=== PATIENT | female | born 1965 | race Caucasian/White ===

== ENCOUNTER 2017-04-09 23:32 | Emergency (ER) | payer BC ==
[~2017-04-09] VITALS: Ht 160 cm; Wt 102.1 kg
[~2017-04-09 23:32] MED LIST: FLUC200T45 PO; IRBE75TA31 PO; MUPI22OI TP; NAPR-243 PO; OMEP20CA12 PO; SULF1TAB35 PO; TRIA1TAB3 PO
[2017-04-10] MEDS ORDERED: HYDROcodone/APAP 5 MG/325 MG (LORTAB) TAB PO ONE (01:15)
[2017-04-10] MEDS ORDERED: CYCLOBENZAPRINE 10 MG (FLEXERIL) TAB PO ONE (01:15)
[2017-04-10] MEDS ORDERED: PRD20T PO (01:20)
[2017-04-10] MEDS ORDERED: CYCL10TA9 PO (01:20)
--- NOTE | 2017-04-10 01:20 | ED Back Pain ---
General Chief Complaint: Back Problems Stated Complaint: RT SHOULDER & MIDDLE BACK PAIN Nursing Triage Note: Pt amb to ED reporting an upper right back pain with deep breathe that radiates into R shoulder. Initially noted as "a catch in R shoulder Sunday a.m. when I awoke." Pain is "5-6" with regular breathe and "9-10" with deep breathe. 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 Pt could not reach Dr Aldana today. Nursing Sepsis Screen: No Definite Risk Source of Information: Patient Exam Limitations: No Limitations History of Present Illness Time Seen by Provider: 00:55 Initial Comments This 51-year-old woman presents to the emergency room with pain in the right posterior chest and right shoulder that is worse with certain positions and especially with deep breathing. She can identify no injury. Affected areas are tender to palpation. She denies any cough or fever. She has no lower extremity symptoms. She has been using Aleve, Tylenol, and tramadol without significant relief. 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 She has occasional shortness of breath. She denies any tobacco use. She does note a recent pinching sensation in the right neck as well. There was no tachycardia or hypoxia on assessment. Allergies and Home Medications Allergies Coded Allergies: prochlorperazine (Verified Allergy, Unknown, 02/15/15) Home Medications Cyclobenzaprine HCl 10 Mg Tablet, 10 MG PO TID PRN for SPASMS, #20 Prescribed by: MAXIMINO HELLER on 04/10/17 0120 Fluconazole 200 Mg Tablet, 1 EACH PO DAILY, #5 Prescribed by: KANIKA ALFRED on 02/15/15 0658 Irbesartan 75 Mg Tablet, Unknown Dose PO, (Reported) Mupirocin 22 Gm Oint..gm., 22 GM TP BID, #1 Prescribed by: KANIKA ALFRED on 02/15/15 0658 Naproxen 500 Mg Tablet, 1 EACH PO TID PRN for PAIN, #20 FOR PAIN Prescribed by: KANIKA ALFRED on 02/15/15 0658 Omeprazole 20 Mg Capsule.dr, 1 CAP PO DAILY, #30 (Reported) Prednisone 20 Mg Tab, 20 MG PO DAILY, #4 Prescribed by: MAXMIINO HELLER on 04/10/17 0120 Sulfamethoxazole/Trimethoprim 1 Each Tablet, 1 TAB PO BID, #20 FOR INFECTION Prescribed by: KANIKA ALFRED on 02/15/15 0658 Triamterene/Hydrochlorothiazid 1 Udtab Tablet, Unknown Dose PO, #30 (Reported) Constitutional: no symptoms reported EENTM: no symptoms reported Respiratory: see HPI Cardiovascular: no symptoms reported Gastrointestinal: no symptoms reported Genitourinary: no symptoms reported Musculoskeletal: see HPI Skin: no symptoms reported Psychiatric/Neurological: No Symptoms Reported Past Qumlcez-Atamix-Llltgo Hx Patient Social History Alcohol Use: Denies Use Recreational Drug Use: No Smoking Status: Never a Smoker 2nd Hand Smoke Exposure: No Recent Foreign Travel: No Contact w/Someone Who Travel: No Recent Infectious Disease Expo: No Recent Hopitalizations: No Immunizations Up To Date Tetanus Booster (TDap): Unknown Seasonal Allergies Seasonal Allergies: Yes Surgeries HX Surgeries: Yes (BUNIONECTOMY, NEUROMA REMOVAL, TOENAILS REMOVED) Surgeries: Adenoidectomy, Section, Gallbladder, Hysterectomy, Orthopedic, Tonsillectomy Respiratory Hx Respiratory Disorders: Yes (history of pleurisy) Respiratory Disorders: Pneumonia Cardiovascular Hx Cardiac Disorders: Yes Cardiac Disorders: Hypertension Neurological Hx Neurological Disorders: No Reproductive System Hx Reproductive Disorders: Yes Sexually Transmitted Disease: No Female Reproductive Disorders: Endometriosis 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 Genitourinary Hx Genitourinary Disorders: No Gastrointestinal Hx Gastrointestinal Disorders: Yes Gastrointestinal Disorders: Gastroesophageal Reflux Musculoskeletal Hx Musculoskeletal Disorders: No Endocrine Hx Endocrine Disorders: No HEENT HX ENT Disorders: No Cancer Hx Cancer: No Psychosocial Hx Psychiatric Problems: No Integumentary HX Skin/Integumentary Disorder: No Blood Transfusions Hx Blood Disorders: No Family Medical History Significant Family History: Heart Disease, Cancer (oral squamous cell carcinoma , melanoma), Diabetes, Hypertension Physical Exam Vital Signs Vital Sign - Last 12Hours 04/09/17 23:35 Temp 98.3 Pulse 79 Resp 20 B/P (MAP) 155/85 Pulse Ox 99 O2 Delivery Room Air Capillary Refill : Less Than 3 Seconds General Appearance: No Apparent Distress, WD/WN, Obese HEENT: PERRL/EOMI, Normal ENT Inspection Neck: Normal Inspection Cardiovascular: Regular Rate, Rhythm, No Edema, No Murmur Respiratory: Lungs Clear, Normal Breath Sounds, No Accessory Muscle Use, No Respiratory Distress Back: Other (tenderness to palpation in the right posterior chest wall/ paraspinous muscles) Extremity: Normal Inspection, Non Tender (lower extremities), No Calf Tenderness, No Pedal Edema, Other (negative Mili. Right shoulder tender to palpation and pain induced with range of motion. Range of motion intact.) Neurologic/Psychiatric: Alert, Oriented x3, No Motor/Sensory Deficits, Normal Mood/Affect, investigation lieutenant II-XII Norm as Tested Skin: Normal Color, Warm/Dry, No Rash Progress/Results/Core Measures Results/Orders My Orders Orders - MAXIMINO VALLE MD Hydrocodone/Apap 5/325 Tablet (Lortab 5 (04/10/17 01:15) Cyclobenzaprine Tablet (Flexeril Tablet) (04/10/17 01:15) Vital Signs/I&O Vital Sign - Last 12Hours 04/09/17 04/10/17 23:35 01:27 Temp 98.3 98.3 Pulse 79 81 Resp 20 18 B/P (MAP) 155/85 Pulse Ox 99 100 O2 Delivery Room Air Room Air Blood Pressure Mean: 108 Progress Note : Progress Note Patient declined Toradol injection. She was alternatively given Flexeril and hydrocodone in the ER. Departure Impression Impression: Primary Impression: Upper back pain Additional Impression: Right shoulder pain Qualified Codes: M25.511 - Pain in right shoulder Disposition: 01 HOME, SELF-CARE Condition: Improved Departure-Patient Inst. Decision time for Depature: 01:15 Referrals: MILLICENT ALDANA DO (PCP/Family) Primary Care Physician Patient Instructions: Upper Back Pain (DC) Add. Discharge Instructions: You may continue using Aleve (naproxen) up to 500 mg every 12 hours. You may add Tylenol and tramadol as necessary for additional pain relief. Gentle heat such as a heating pad on low may also be helpful. Avoid activities or postures that exacerbate your pain. Start your prednisone prescription tomorrow. If not improving over the next day or two, seek further evaluation with your primary care provider. Consider other modalities of pain management including adult care provider. Return to the ER if symptoms worsen. All discharge instructions reviewed with patient and/or family. Voiced understanding. Scripts Prednisone (Prednisone) 20 Mg Tab 20 MG PO DAILY, #4 TAB Prov: MAXIMINO VALLE MD 04/10/17 Cyclobenzaprine HCl (Cyclobenzaprine HCl) 10 Mg Tablet 10 MG PO TID Y for SPASMS, #20 TAB Prov: MAXIMINO VALLE MD 04/10/17 MAXIMINO VALLE MD Apr 10, 2017 01:20
[2017-04-10 01:27] VITALS: BP 157/77
== END 2017-04-10 01:25 | disposition home or self-care (01) ==
LOC: EDUNIT# 23:32 → ER 23:34
DX: M25.511 Pain in right shoulder (principal); M54.6 Pain in thoracic spine; I10 Essential (primary) hypertension; K21.9 Gastro-esophageal reflux disease without esophagitis; Z82.49 Family history of ischemic heart disease and other diseases of the circulatory system; Z80.8 Family history of malignant neoplasm of other organs or systems; Z90.710 Acquired absence of both cervix and uterus; Z90.89 Acquired absence of other organs
CPT/HCPCS: 99283

== ENCOUNTER 2017-12-27 05:32 | Outpatient (CLI) | payer BC ==
[~2017-12-27] VITALS: Ht 160 cm; Wt 102.1 kg
[~2017-12-27 05:32] MED LIST changes: +CYCL10TA9 PO; +PRD20T PO
[2017-12-27] MEDS ORDERED: OMEP20TA7 PO (15:52)
[2017-12-27] MEDS ORDERED: ASPI-586 PO (15:52)
[2017-12-27] MEDS ORDERED: TRIA1TAB2 PO (15:52)
[2017-12-27] MEDS ORDERED: IRBE150T50 PO (15:52)
[2018-03-28] MEDS ORDERED: HYDR-34 PO (14:56)
== END 2017-12-27 15:56 ==
LOC: PREOP 05:32
PROVIDERS: ATTEND Specialist
DX: Z01.818 Encounter for other preprocedural examination (principal); H25.12 Age-related nuclear cataract, left eye

== ENCOUNTER 2018-01-04 06:23 | Day surgery (SDC) | payer BC ==
[~2018-01-04] VITALS: Ht 160 cm; Wt 102.1 kg
[~2018-01-04 06:23] MED LIST changes: +ASPI-586 PO; +IRBE150T50 PO; +OMEP20TA7 PO; +TRIA1TAB2 PO
--- OUTSIDE RECORDS SUMMARY | 2018-01-04 06:27 | XMS REPORT | Continuity of Care Document ---
Author Author [facility] Organization [facility] Address Unknown Phone Unavailable Allergies Active Description Code Type Severity Reaction Onset Reported/Identified Relationship to Patient Clinical Status Yes prochlorperazine [id number] Drug Allergy Unknown N/A 02/15/2015 Medications There is no data. Problems Date Dx Coded Attending Type Code Diagnosis Diagnosed By 02/15/2015 KANIKA ALFRED DO Ot 845.00 SPRAIN OF ANKLE NOS 02/15/2015 KANIKA ALFRED DO Ot 882.0 OPEN WOUND OF HAND 02/15/2015 KANIKA ALFRED DO Ot 917.0 ABRASION FOOT TOE 02/15/2015 KANIKA ALFRED DO Ot 959.7 LOWER LEG INJURY NOS 02/15/2015 KANIKA ALFRED DO Ot E000.8 OTHER EXTERNAL CAUSE STATUS 02/15/2015 KANIKA ALFRED DO Ot E888.8 FALL NEC 04/10/2017 MAXIMINO VALLE MD Ot I10 ESSENTIAL (PRIMARY) HYPERTENSION 04/10/2017 MAXIMINO VALLE MD, Ot K21.9 GASTRO-ESOPHAGEAL REFLUX DISEASE WITHOUT 04/10/2017 MAXIMINO VALLE MD Ot M25.511 PAIN IN RIGHT SHOULDER 04/10/2017 MAXIMINO VALLE MD Ot M54.6 PAIN IN THORACIC SPINE 04/10/2017 MAXIMINO VALLE MD Ot Z80.8 FAMILY HISTORY OF MALIGNANT NEOPLASM OF 04/10/2017 MAXIMINO VALLE MD, Ot Z82.49 FAMILY HX OF ISCHEM HEART DIS AND OTH DI 04/10/2017 MAXIMINO VALLE MD, Ot Z90.710 ACQUIRED ABSENCE OF BOTH CERVIX AND UTER 04/10/2017 MAXIMINO VALLE MD, Ot Z90.89 ACQUIRED ABSENCE OF OTHER ORGANS 12/27/2017 JENI SANTIAGO MD Ot H25.12 AGE-RELATED NUCLEAR CATARACT, LEFT EYE 12/27/2017 JENI SANTIAGO MD Ot Z01.818 ENCOUNTER FOR OTHER PREPROCEDURAL EXAMIN 12/28/2017 JENI SANTIAGO MD Ot H25.12 AGE-RELATED NUCLEAR CATARACT, LEFT EYE 12/28/2017 JENI SANTIAGO MD Ot Z01.818 ENCOUNTER FOR OTHER PREPROCEDURAL EXAMIN Procedures There is no data. Results There is no data. Encounters ACCT No. Visit Date/Time Discharge Status Pt. Type Provider Facility Loc./Unit Complaint [id number] 12/27/2017 05:32:00 12/27/2017 15:56:00 DIS Outpatient JENI SANTIAGO MD [facility] PREOP CATARACT LEFT EYE [id number] 06/05/2017 15:30:00 06/05/2017 23:59:59 CLS Preadmit VANESSA NARVAEZ, VISH Larios [facility] RAD LEFT TIBIALIS POSTERIOR TENDINITIS [id number] 04/09/2017 23:34:00 04/10/2017 01:25:00 DIS Emergency LEONARD NARVAEZ, MAXIMINO Scott [facility] ER RT SHOULDER MIDDLE BACK PAIN [id number] 05/20/2016 09:31:00 05/20/2016 23:59:59 CLS Outpatient YONY MARCUS APRN [facility] QUICK [id number] 02/15/2015 05:53:00 02/15/2015 07:21:00 DIS Emergency KANIKA ALFRED DO [facility] ER RT FOOT LAC [id number] 04/19/2013 12:46:00 04/19/2013 23:59:59 CLS Outpatient [id number] 01/18/2018 08:00:00 PEN Henrrymit JENI SANTIAGO MD [facility] CATARACT RIGHT EYE [id number] 01/04/2018 08:00:00 JENI Ortega MD [facility] CATARACT LEFT EYE
[2018-01-04 06:32] VITALS: BP 110/71
[2018-01-04 06:40] VITALS: BP 110/71
[2018-01-04] MEDS ORDERED: VANCOMYCIN/BSS (COMPOUNDED) 10 MG/ML SYR OP ONE (06:45)
[2018-01-04] MEDS ORDERED: TIMOLOL MALEATE 0.5% 5 ML (TIMOPTIC) BTL OU PRN (06:45)
[2018-01-04] MEDS ORDERED: LIDOCAINE PF 1% 2 ML AMP IR PRN (06:45)
[2018-01-04] MEDS ORDERED: POVIDONE (BETADINE) OPHTH SOLN 5% 30 ML OP ONE (06:45)
[2018-01-04] MEDS ORDERED: EPINEPHrine INJECTION 1 MG/ML AMP INJ ONE (06:45)
[2018-01-04] MEDS: TETRACAINE 0.5% OPHTH SOLN 4 ML BTL (SINGLE DOSE ONLY) OU PRN ×4 (06:46→07:04)
[2018-01-04] MEDS: CYCLOPENTOLATE 1% (CYCLOGYL) 2 ML DROPS OP SCH ×3 (06:52→07:04)
[2018-01-04] MEDS: PHENYLEPHRINE 10% OPHTH (NEO-SYN) 5 ML BTL OU SCH ×3 (06:52→07:04)
[2018-01-04] MEDS ORDERED: MIDAZOLAM 2 MG/2 ML (VERSED) VIAL ONE (07:44)
[2018-01-04 08:15] VITALS: BP 134/81
--- NOTE | 2018-01-04 09:08 | Ophthalmology Operative Report ---
Cataract removal/placement IOL PREOPERATIVE DIAGNOSIS: Cataract Left Eye POSTOPERATIVE DIAGNOSIS: Cataract Left Eye PROCEDURE: Cataract removal and placement of posterior chamber implant, left eye SURGEON: Errol Santiago ANESTHESIA: Topical with sedation COMPLICATIONS: None ESTIMATED BLOOD LOSS: Minimal DESCRIPTION OF PROCEDURE: After proper informed consent was obtained, the patient, a 52 female, was taken to the Operating Room and the left eye was anesthetized with tetracaine. They left eye was then prepped and draped in the usual manner. A wire lid speculum was placed. A paracentesis was made at the left hand position. Preservative free lidocaine was injected into the anterior chamber followed by viscoelastic. A clear corneal incision was made in the temporal position. A capsulorrhexis was preformed and the central nuclear and cortical material were removed. The posterior capsule was polished and Alcon20.5 SN6CWS IOL was placed into the capsular bag. The residual viscoelastic was aspirated and balanced saline solution was injected into the anterior chamber. 1.0 mg of Vancomycin (10mg/ 1.0ml) was injected into the anterior chamber. The would was checked and found to be water tight. The patient tolerated the procedure well without complications. ERROL SANTIAGO MD Jan 04, 2018 09:08
--- NOTE | 2018-01-04 09:09 | Ophthalmologist Pre-Op Note ---
Pre-Operative Progress Note H&P Reviewed The H&P was reviewed, patient examined and no changes noted. Date H&P Reviewed: Jan 04, 2018 Time H&P Reviewed: 07:45 Pre-Op Dx Cataract, Left Eye JENI SANTIAGO MD Jan 04, 2018 09:09
--- NOTE | 2018-01-04 10:22 | Anesthesia-General Post-Op ---
MAC Patient Condition Mental Status/LOC: Same as Preop Cardiovascular: Satisfactory Nausea/Vomiting: Absent Respiratory: Satisfactory Pain: Controlled Complications: Absent Post Op Complications Complications None Follow Up Care/Instructions Patient Instructions None needed. Anesthesiology Discharge Order Discharge Order Patient was seen after surgery and was doing well, no complaints, stable vital signs, no apparent adverse anesthesia problems. SAM CARLIN DO Jan 04, 2018 10:22
== END 2018-01-04 08:15 | disposition home or self-care (01) ==
LOC: SDC 06:23
PROVIDERS: ATTEND Specialist
DX: H26.9 Unspecified cataract (principal); I10 Essential (primary) hypertension; K21.9 Gastro-esophageal reflux disease without esophagitis; Z79.82 Long term (current) use of aspirin; Z79.899 Other long term (current) drug therapy

== ENCOUNTER 2018-01-11 05:41 | Outpatient (CLI) | payer BC ==
[~2018-01-11] VITALS: Ht 160 cm; Wt 102.1 kg
== END 2018-01-11 10:52 ==
LOC: PREOP 05:41
PROVIDERS: ATTEND Specialist
DX: Z01.818 Encounter for other preprocedural examination (principal); H25.11 Age-related nuclear cataract, right eye

== ENCOUNTER 2018-01-18 06:25 | Day surgery (SDC) | payer BC ==
[~2018-01-18] VITALS: Ht 160 cm; Wt 102.1 kg
--- OUTSIDE RECORDS SUMMARY | 2018-01-18 06:28 | XMS REPORT | Continuity of Care Document ---
Author Author [facility] Organization [facility] Address Unknown Phone Unavailable Allergies Active Description Code Type Severity Reaction Onset Reported/Identified Relationship to Patient Clinical Status Yes prochlorperazine [id number] Drug Allergy Unknown N/A 02/15/2015 Medications There [...] Ot Z01.818 ENCOUNTER FOR OTHER PREPROCEDURAL EXAMIN 01/07/2018 JENI SANTIAGO MD Ot H26.9 UNSPECIFIED CATARACT 01/07/2018 JENI SANTIAGO MD Ot I10 ESSENTIAL (PRIMARY) HYPERTENSION 01/07/2018 JENI SANTIAGO MD Ot K21.9 GASTRO-ESOPHAGEAL REFLUX DISEASE WITHOUT 01/07/2018 JENI SANTIAGO MD Ot 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 Results There is no data. Encounters ACCT No. Visit Date/Time Discharge Status Pt. Type Provider Facility Loc./Unit Complaint [id number] 01/11/2018 05:41:00 01/11/2018 10:52:00 DIS Outpatient JENI SANTIAGO MD [facility] PREOP CATARACT RIGHT EYE [id number] 01/04/2018 06:23:00 01/04/2018 08:15:00 DIS Outpatient [facility] [id number] 12/27/2017 05:32:00 12/27/2017 15:56:00 DIS Outpatient JENI SANTIAGO MD [facility] PREOP CATARACT LEFT EYE [id number] 06/05/2017 15:30:00 06/05/2017 23:59:59 CLS Preadmit VANESSA NARVAEZ, VISH Larios [facility] RAD LEFT TIBIALIS POSTERIOR TENDINITIS [id number] 04/09/2017 23:34:00 04/10/2017 01:25:00 DIS Emergency LEONARD NARVAEZ, MAXIMINO Scott [facility] ER RT SHOULDER MIDDLE BACK PAIN [id number] 05/20/2016 09:31:00 05/20/2016 23:59:59 CLS Outpatient YONY MARCUS APRN [facility] QUICK [id number] 02/15/2015 05:53:00 02/15/2015 07:21:00 DIS Emergency KANIKA ALFRED DO [facility] ER RT FOOT LAC [id number] 04/19/2013 12:46:00 04/19/2013 23:59:59 CLS Outpatient [id number] 01/18/2018 08:00:00 PEN Fred SANTIAGO MD, JENI Lloyd [facility] CATARACT RIGHT EYE
[2018-01-18 06:45] VITALS: BP 98/60
[2018-01-18] MEDS ORDERED: POVIDONE (BETADINE) OPHTH SOLN 5% 30 ML OP ONE (06:45)
[2018-01-18] MEDS ORDERED: TIMOLOL MALEATE 0.5% 5 ML (TIMOPTIC) BTL OU PRN (06:45)
[2018-01-18] MEDS ORDERED: LIDOCAINE PF 1% 2 ML AMP IR PRN (06:45)
[2018-01-18] MEDS ORDERED: VANCOMYCIN/BSS (COMPOUNDED) 10 MG/ML SYR OP ONE (06:45)
[2018-01-18] MEDS ORDERED: EPINEPHrine INJECTION 1 MG/ML AMP INJ ONE (06:45)
[2018-01-18] MEDS: TETRACAINE 0.5% OPHTH SOLN 4 ML BTL (SINGLE DOSE ONLY) OU PRN ×4 (06:48→07:05)
[2018-01-18] MEDS: PHENYLEPHRINE 10% OPHTH (NEO-SYN) 5 ML BTL OU SCH ×3 (06:55→07:06)
[2018-01-18] MEDS: CYCLOPENTOLATE 1% (CYCLOGYL) 2 ML DROPS OP SCH ×3 (06:55→07:05)
--- NOTE | 2018-01-18 07:15 | Ophthalmology Operative Report ---
Cataract removal/placement IOL PREOPERATIVE DIAGNOSIS: Cataract Right Eye POSTOPERATIVE DIAGNOSIS: Cataract Right Eye PROCEDURE: Cataract removal and placement of posterior chamber implant, right eye SURGEON: Errol Santiago ANESTHESIA: Topical with sedation COMPLICATIONS: None ESTIMATED BLOOD LOSS: Minimal DESCRIPTION OF PROCEDURE: After proper informed consent was obtained, the patient, a 52 female, was taken to the Operating Room and the right eye was anesthetized with tetracaine. They right eye was then prepped and draped in the usual manner. A wire lid speculum was placed. A paracentesis was made at the left hand position. Preservative free lidocaine was injected into the anterior chamber followed by viscoelastic. A clear corneal incision was made in the temporal position. A capsulorrhexis was preformed and the central nuclear and cortical material were removed. The posterior capsule was polished and Roberto 21.0 SN6CWS IOL was placed into the capsular bag. The residual viscoelastic was aspirated and balanced saline solution was injected into the anterior chamber. 0.1ml of Vancomycin (10mg/0.1ml ) was injected into the anterior chamber. The wound was checked and found to be water tight. The patient tolerated the procedure well without complications. ERROL SANTIAGO MD January 18, 2018 07:15
--- NOTE | 2018-01-18 07:16 | Ophthalmologist Pre-Op Note ---
Pre-Operative Progress Note H&P Reviewed The H&P was reviewed, patient examined and no changes noted. Date H&P Reviewed: January 18, 2018 Time H&P Reviewed: 07:16 Pre-Op Dx Cataract, Right Eye JENI SANTIAGO MD January 18, 2018 07:16
[2018-01-18] MEDS ORDERED: MIDAZOLAM 2 MG/2 ML (VERSED) VIAL ONE (07:18)
[2018-01-18 07:50] VITALS: BP 128/64
--- NOTE | 2018-01-18 13:04 | Anesthesia-General Post-Op ---
MAC Patient Condition Mental Status/LOC: Same as Preop Cardiovascular: Satisfactory Nausea/Vomiting: Absent Respiratory: Satisfactory Pain: Controlled Complications: Absent Post Op Complications Complications None Follow Up Care/Instructions Patient Instructions None needed. Anesthesiology Discharge Order Discharge Order Patient is doing well, no complaints, stable vital signs, no apparent adverse anesthesia problems. No complications reported per nursing. ISA OCHOA CRNA January 18, 2018 13:04
== END 2018-01-18 07:50 | disposition home or self-care (01) ==
LOC: SDC 06:25
PROVIDERS: ATTEND Specialist
DX: H26.9 Unspecified cataract (principal); I10 Essential (primary) hypertension; Z79.82 Long term (current) use of aspirin; Z79.899 Other long term (current) drug therapy

== ENCOUNTER 2018-03-27 08:51 | Outpatient (CLI) | payer BC ==
[~2018-03-27] VITALS: Ht 160 cm; Wt 97.5 kg
[2018-03-28] MEDS ORDERED: HYDR-34 PO (14:56)
== END 2018-03-27 14:22 ==
LOC: PREOP 08:51
PROVIDERS: ATTEND Surgery
DX: Z01.818 Encounter for other preprocedural examination (principal)

== ENCOUNTER 2018-03-28 10:20 | Day surgery (SDC) | payer BC ==
[~2018-03-28] VITALS: Ht 160 cm; Wt 97.5 kg
--- OUTSIDE RECORDS SUMMARY | 2018-03-28 10:23 | XMS REPORT | Continuity of Care Document ---
Author Author [facility] Organization [facility] Address Unknown Phone Unavailable Allergies Active Description Code Type Severity Reaction Onset Reported/Identified Relationship to Patient Clinical Status Yes amoxicillin [id number] Drug Allergy Mild LIPS SWOLLEN/RA 03/27/2018 Yes clavulanic acid [id number] Drug Allergy Mild LIPS SWOLLEN/RA 03/27/2018 Yes fluconazole [id number] Drug Allergy Mild LIPS SWOLLEN/RA 03/27/2018 Yes prochlorperazine [id number] Drug Allergy Unknown N/A 03/27/2018 Medications There is no data. Problems Date [...] ALFRED DO Ot E888.8 FALL NEC 04/10/2017 LEONARD NARVAEZ, MAXIMINO Scott Ot I10 ESSENTIAL (PRIMARY) HYPERTENSION 04/10/2017 MAXIMINO VALLE MD, Ot K21.9 GASTRO-ESOPHAGEAL REFLUX DISEASE WITHOUT 04/10/2017 MAXIMINO VALLE MD, Ot M25.511 PAIN IN RIGHT SHOULDER 04/10/2017 MAXIMINO VALLE MD, Ot M54.6 PAIN IN THORACIC SPINE 04/10/2017 LEONARD NARVAEZ, MAXIMINO Scott Ot Z80.8 FAMILY HISTORY OF MALIGNANT NEOPLASM OF 04/10/2017 MAXIMINO VALLE MD, Ot Z82.49 FAMILY HX OF ISCHEM HEART DIS AND OTH DI 04/10/2017 MAXIMINO VALLE MD, Ot Z90.710 ACQUIRED ABSENCE OF BOTH CERVIX AND UTER 04/10/2017 MAXIMINO VALLE MD Ot Z90.89 ACQUIRED ABSENCE OF OTHER ORGANS 12/27/2017 JENI SANTIAGO MD Ot H25.12 AGE-RELATED NUCLEAR CATARACT, LEFT EYE 12/27/2017 JENI SANTIAGO MD Ot Z01.818 ENCOUNTER FOR OTHER PREPROCEDURAL EXAMIN 12/28/2017 JENI SANTIAGO MD Ot H25.12 AGE-RELATED NUCLEAR CATARACT, LEFT EYE 12/28/2017 JENI SANTIAGO MD Ot Z01.818 ENCOUNTER FOR OTHER PREPROCEDURAL EXAMIN 01/04/2018 JENI SANTIAGO MD Ot H26.9 UNSPECIFIED CATARACT 01/04/2018 JENI SANTIAGO MD Ot I10 ESSENTIAL (PRIMARY) HYPERTENSION 01/04/2018 JENI SANTIAGO MD Ot K21.9 GASTRO-ESOPHAGEAL REFLUX DISEASE WITHOUT 01/04/2018 JENI SANTIAGO MD Ot Z79.82 DETENTION (CURRENT) USE OF ASPIRIN 01/04/2018 JENI SANTIAGO MD Ot 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 01/07/2018 JENI SANTIAGO MD Ot H26.9 UNSPECIFIED CATARACT 01/07/2018 JENI SANTIAGO MD Ot I10 ESSENTIAL (PRIMARY) HYPERTENSION 01/07/2018 JENI SANTIAGO MD, Ot K21.9 GASTRO-ESOPHAGEAL REFLUX DISEASE WITHOUT 01/07/2018 JENI SANTIAGO MD Ot 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 01/07/2018 JENI SANTIAGO MD Ot Z79.899 OTHER DETENTION (CURRENT) DRUG THERAPY 01/14/2018 JENI SANTIAGO MD Ot H25.11 AGE-RELATED NUCLEAR CATARACT, RIGHT EYE 01/14/2018 JENI SANTIAGO MD Ot Z01.818 ENCOUNTER FOR OTHER PREPROCEDURAL EXAMIN 01/18/2018 JENI SANTIAGO MD Ot H26.9 UNSPECIFIED CATARACT 01/18/2018 JENI SANTIAGO MD Ot I10 ESSENTIAL (PRIMARY) HYPERTENSION 01/18/2018 JENI SANTIAGO MD Ot Z79.82 DETENTION (CURRENT) USE OF ASPIRIN 01/18/2018 JENI SANTIAGO MD Ot 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 Results There is no data. Encounters ACCT No. Visit Date/Time Discharge Status Pt. Type Provider Facility Loc./Unit Complaint [id number] 03/27/2018 08:51:00 03/27/2018 14:22:00 DIS Outpatient MONA STEELE MD [facility] PREOP RIGHT AXILLA MASS [id number] 01/18/2018 06:25:00 01/18/2018 07:50:00 DIS Outpatient JENI SANTIAGO MD [facility] CATARACT RIGHT EYE [id number] 01/11/2018 05:41:00 01/11/2018 10:52:00 DIS Outpatient JENI SANTIAGO MD [facility] PREOP CATARACT RIGHT EYE [id number] 01/04/2018 06:23:00 01/04/2018 08:15:00 DIS Outpatient JENI SANTIAGO MD [facility] CATARACT LEFT EYE [id number] 12/27/2017 05:32:00 12/27/2017 15:56:00 DIS Outpatient JENI SANTIAGO MD [facility] PREOP CATARACT LEFT EYE [id number] 06/05/2017 15:30:00 06/05/2017 23:59:59 CLS Preadmit VANESSA NARVAEZ, VISH Larios [facility] RAD LEFT TIBIALIS POSTERIOR TENDINITIS [id number] 04/09/2017 23:34:00 04/10/2017 01:25:00 DIS Emergency LEONARD NARVAEZ, MAXIMINO Scott [facility] ER RT SHOULDER MIDDLE BACK PAIN [id number] 05/20/2016 09:31:00 05/20/2016 23:59:59 CLS Outpatient YONY MARCUS APRN [facility] JACQUES [id number] 02/15/2015 05:53:00 02/15/2015 07:21:00 DIS Emergency KANIKA ALFRED DO [facility] ER RT FOOT LAC [id number] 04/19/2013 12:46:00 04/19/2013 23:59:59 CLS Outpatient [id number] 03/28/2018 11:30:00 PEN Preadmit MONA STEELE MD [facility] SDC RIGHT AXILLA MASS
[2018-03-28 10:40] VITALS: BP 127/73
[2018-03-28] MEDS: LACTATED RINGERS 1,000 ML IV PRN ×2 (10:50→13:46)
--- NOTE | 2018-03-28 11:07 | Progress Note-Pre Operative ---
Pre-Operative Progress Note H&P Reviewed The H&P was reviewed, patient examined and no changes noted. Date Seen by Provider: Mar 28, 2018 Time Seen by Provider: 11:00 Date H&P Reviewed: Mar 28, 2018 Time H&P Reviewed: 11:00 Pre-Operative Diagnosis: right axillary mass MONA STEELE MD Mar 28, 2018 11:07 am
[2018-03-28] MEDS ORDERED: ACETAMINOPHEN 325 MG TABLET PO PRN (11:15)
[2018-03-28] MEDS ORDERED: morphine INJ 10 MG/ML 1ML (SYR OR VIAL) IVP PRN ×2 (11:15→15:15)
[2018-03-28] MEDS ORDERED: ONDANSETRON 4 MG/2 ML (SDV) Z0FRAN IVP PRN ×2 (11:15→15:15)
[2018-03-28] MEDS ORDERED: ceFAZolin INJECTION 1,000 MG in NS (IVPB) 50 ML IV ONE (11:15)
[2018-03-28] MEDS ORDERED: HYDROcodone/APAP 5 MG/325 MG (LORTAB) TAB PO ONE (11:15)
[2018-03-28] MEDS ORDERED: BUP/EPI 0.5% 1:200,000 (SENSORCAINE) 30 ML VIAL ONE (12:26)
[2018-03-28] MEDS ORDERED: MIDAZOLAM 2 MG/2 ML (VERSED) VIAL ONE (13:29)
[2018-03-28] MEDS ORDERED: LIDOCAINE PF 2% 5 ML (XYLOCAINE) VIAL ONE (13:29)
[2018-03-28] MEDS ORDERED: fentaNYL INJECTION 100 MCG/2 ML AMP ONE (13:29)
[2018-03-28] MEDS ORDERED: proPOfol 200 MG/20 ML (DIPRIVAN) VIAL IV ONE (13:29)
[2018-03-28] MEDS ORDERED: ONDANSETRON 4 MG/2 ML (SDV) Z0FRAN ONE (13:30)
[2018-03-28] MEDS ORDERED: DEXAMETHASONE 10 MG/ML (DECADRON) 1 ML VIAL ONE (13:30)
[2018-03-28] MEDS ORDERED: SEVOFLURANE (ULTANE) 15 ML INHAL SOLN ONE ×5 (14:27→14:50)
[2018-03-28] MEDS ORDERED: HYDR-34 PO (14:56)
--- NOTE | 2018-03-28 14:56 | Progress Note-Post Operative ---
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 MONA STEELE MD Mar 28, 2018 2:55 pm
--- NOTE | 2018-03-28 14:58 | Discharge Inst-Surgical ---
D/C Lap Instructions-IVETTE New, Converted, or Re-Newed RX: RX on Chart Follow Up Appt in 1 week Activity as tolerated Regular Diet Symptoms to Report: Fever over 101 degree F, Nausea/Vomiting Infection Signs and Symptoms to report: Increased redness, Foul odor of wound, Increased drainage Bathing instructions: May shower Operative Area Clean/Dry; Keep incision clean/dry If any problems/questions: Contact your physician or go to Emergency Room MONA STEELE MD Mar 28, 2018 2:58 pm
[2018-03-28 16:00] VITALS: BP 163/81
[2018-03-28 16:30] VITALS: BP 154/89
[2018-03-28 17:00] VITALS: BP 133/78
--- NOTE | 2018-03-28 22:00 | OPERATIVE REPORT ---
DATE OF SERVICE: 03/28/2018 ATTENDING PRIMARY CARE PHYSICIAN: Brenton Aldana DO PREOPERATIVE DIAGNOSES: Persistent right axilla lymph node, painful nodule posterior scalp x2. 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 PROCEDURE: Excision of right axillary lymph node x2 and excision of pilar cyst x2, posterior scalp, both 1 cm in size. SURGEON: Mona Steele MD AIRPLANE FLIGHT ATTENDANT SUPERVISOR: Jean Carlos Edwards APRN ANESTHESIA: General endotracheal. ESTIMATED BLOOD LOSS: Minimal. FINDINGS: Two palpable lymph nodes of the right axillary region, one was significantly larger than the other. There was a softer consistency to this lesion, which may indicate some form of pathology. A lesion of the posterior scalp 1 cm in size consistent with a benign pilar cyst. DISPOSITION: The patient tolerated the procedure well. INDICATIONS: The patient is a 52-year-old female with a persistent nodule identified at the right axillary region. She reports that she noticed the lesion approximately 8 months ago. She was seen by her physician and started on antibiotics; however, the lesion persisted. A mammogram was performed as well as an ultrasound. Mammogram was negative as were all of her other mammograms in the past. An ultrasound was then performed, which did show an enlarged lymph node approximately 2.4 cm in size. She does report that she has had some palpable breast lesions; however, she has a large breast and she has fibrocystic breast as did her mother. She does not report any family history of breast cancer; however, there are multiple other people in her family with history of cancer. She states that she is otherwise doing well. She does not report any fever nor chills as well as no night sweats. She states that she has lost some weight, however, due to increased activity from her job in the last several months. She also has 2 lesions of the posterior scalp, which has been around for several months and has grown larger in size and became painful. This appears to be a benign pilar cyst. DESCRIPTION OF PROCEDURE: The patient was brought to the operating room, laid supine on the table. After adequate IV pain and sedating medications and general laryngeal mask airway intubation, the axilla was prepped and draped in standard surgical fashion. The skin in the axillary region was then anesthetized using 0.5% Marcaine with epinephrine. A skin incision was made using a 15 blade. The subcutaneous tissue was then dissected down using electrocautery and the clavipectoral fascia was opened using electrocautery. The lymph node was identified and completely dissected out using electrocautery. There was an adjacent palpable lymph node just inferior to this, which was excised as well and sent to pathology. Good hemostasis was observed. The breast tissue was then reapproximated using 3-0 Vicryl interrupted sutures. Subcutaneous tissue was then reapproximated using 3-0 Vicryl interrupted suture and the skin was closed using 4-0 Monocryl running subcuticular suture. Wound was then cleaned and covered with Dermabond. The patient's head was then turned left lateral and the scalp prepped and draped in a sterile manner. The scalp was then anesthetized using 0.5% Marcaine with epinephrine. A scalp incision was then made using a 15 blade and the cyst capsule was identified and completely dissected out using Metzenbaum scissors with visualization of good hemostasis. The scalp was then reapproximated using interrupted 3-0 Prolene sutures. The second lesion removed in similar manner. The patient tolerated the procedure well. We will await the biopsy results and have her follow up in the office in approximately 1 week. She will be instructed to do no heavy lifting or exertion for the next two weeks. Job ID: [id number] DocumentID: [id number] Dictated Date: 03/28/2018 14:48:47 Archivist Economic History Date: 03/28/2018 21:59:27 Dictated By: MONA STEELE MD MTDD
== END 2018-03-28 17:00 | disposition home or self-care (01) ==
LOC: SDC 10:20
PROVIDERS: ATTEND Surgery
DX: R59.0 Localized enlarged lymph nodes (principal); L72.0 Epidermal cyst; I10 Essential (primary) hypertension; Z79.82 Long term (current) use of aspirin
CPT/HCPCS: 87081

== ENCOUNTER 2018-03-30 20:29 | Emergency (ER) | payer BC ==
[~2018-03-30] VITALS: Ht 160 cm; Wt 97.5 kg
[~2018-03-30 20:29] MED LIST changes: +HYDR-34 PO
[2018-03-30] MEDS ORDERED: TRIM/SULFAMETH 160/800 (SEPTRA DS) TAB PO ONE (21:15)
--- NOTE | 2018-03-30 21:17 | ED Integumentary General ---
General Chief Complaint: Skin/Wound Problems Stated Complaint: KNOTS IN HEAD,PRESSURE,CYSTS REMOVED OFF HEAD THUR Nursing Triage Note: Patient reports having cysts removed off the back of her head on the 28 of March. patient states today the area began to swell Source: patient Exam Limitations: no limitations History of Present Illness Date Seen by Provider: Mar 30, 2018 Time Seen by Provider: 21:05 Initial Comments To ER with c/ knots on back of head. She had 2 cysts removed from occipital scalp on 03/28/[address] Steele. Today, she noticed a new knot to the left of the first incision. no fevers or chills Timing/Duration: this morning Severity: moderate Location: scalp Associated Symptoms: denies symptoms Allergies and Home Medications Allergies Coded Allergies: amoxicillin (Verified Allergy, Mild, LIPS SWOLLEN/RASH, 03/28/18) Pt has received Cefazolin in the past w/o issue clavulanic acid (Verified Allergy, Mild, LIPS SWOLLEN/RASH, 03/27/18) fluconazole (Verified Allergy, Mild, LIPS SWOLLEN/RASH, 03/27/18) prochlorperazine (Verified Allergy, Unknown, 03/27/18) Home Medications Aspirin 81 Mg Tablet.dr, 81 MG PO DAILY, (Reported) Hydrocodone Bit/Acetaminophen 1 Ea Tablet, 1 EACH PO Q4H Prescribed by: MONA STEELE on 03/28/18 1456 Irbesartan 150 Mg Tablet, 150 MG PO DAILY, (Reported) Omeprazole 20 Mg Tablet.dr, 20 MG PO DAILY, (Reported) Triamterene/Hydrochlorothiazid 1 Each Tablet, 1 EACH PO DAILY, (Reported) Patient Home Medication List Home Medication List Reviewed: Yes Constitutional: see HPI; No chills, No fever EENTM: see HPI Respiratory: no symptoms reported Cardiovascular: no symptoms reported Genitourinary: no symptoms reported Musculoskeletal: no symptoms reported Skin: see HPI Psychiatric/Neurological: No Symptoms Reported Endocrine: No Symptoms Reported Past Hhnyger-Orolqr-Bjapnl Hx Patient Social History Alcohol Use: Denies Use Recreational Drug Use: No Smoking Status: Never a Smoker 2nd Hand Smoke Exposure: No Recent Foreign Travel: No Contact w/Someone Who Travel: No Recent Infectious Disease Expo: No Recent Hopitalizations: No Immunizations Up To Date Tetanus Booster (TDap): Unknown Seasonal Allergies Seasonal Allergies: Yes Past Medical History Surgeries: Yes (BUNIONECTOMY, NEUROMA REMOVAL, TOENAILS REMOVED) Adenoidectomy, Section, Gallbladder, Hysterectomy, Orthopedic, Tonsillectomy Respiratory: No Pneumonia Cardiac: Yes Heart Murmur, Hypertension Neurological: No Reproductive Disorders: No Female Reproductive Disorders: Endometriosis 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 Sexually Transmitted Disease: No HIV/AIDS: No Genitourinary: No Gastrointestinal: Yes Gastroesophageal Reflux Musculoskeletal: No Endocrine: No HEENT: No Loss of Vision: Bilateral Hearing Impairment: Denies Cancer: No Psychosocial: No Integumentary: Yes Eczema Blood Disorders: No Adverse Reaction/Blood Tranf: No (N/A) Family Medical History Heart Disease, Cancer, Diabetes, Hypertension Physical Exam Vital Signs Vital Signs - First Documented 03/30/18 20:45 Temp 98.4 Pulse 63 Resp 18 B/P (MAP) 117/63 (81) Pulse Ox 98 Capillary Refill : Less Than 3 Seconds General Appearance: WD/WN, no apparent distress HEENT: PERRL/EOMI, normal ENT inspection, other (There is a tender firm mobile nodule beneath the skin about 1 cm in diameter that is about 4 cm lateral to the left of the 2 incisions. I suspect this is a reactive lymph node.The 2 incisions are clean dry and intact without drainage or redness.) Neurologic/Psychiatric: alert, normal mood/affect, oriented x 3 Skin: normal color, warm/dry Progress/Results/Core Measures Results/Orders My Orders Orders - ADI THAKUR APRN Sulfamethoxazole/Trimet Ds Tab (Bactrim (03/30/18 21:15) Vital Signs/I&O 03/30/18 20:45 Temp 98.4 Pulse 63 Resp 18 B/P (MAP) 117/63 (81) Pulse Ox 98 Blood Pressure Mean: 81 Departure Impression Primary Impression: reactive occipital lymph node Disposition: 01 HOME, SELF-CARE Condition: Stable Departure-Patient Inst. Decision time for Depature: 21:19 Referrals: MILLICENT NICKERSON DO (PCP/Family) Primary Care Physician Patient Instructions: LYMPH NODE SWELLING Add. Discharge Instructions: 1. Antibiotic as directed 2. Ibuprofen or Aleve as directed on the bottle. Antibiotics as directed. Return to ER for any concerns. 3. Cool compresses to the area All discharge instructions reviewed with patient and/or family. Voiced understanding. Scripts Sulfamethoxazole/Trimethoprim (Bactrim Ds Tablet) 1 Each Tablet 1 EACH PO BID, #10 TAB Prov: ADI THAKUR APRN 03/30/18 ADI THAKUR APRN Mar 30, 2018 21:17
[2018-03-30] MEDS ORDERED: SULF1TAB35 PO (21:21)
[2018-03-30 21:31] VITALS: BP 117/63
== END 2018-03-30 21:35 | disposition home or self-care (01) ==
LOC: EDUNIT# 20:29 → ER 20:31
DX: R59.0 Localized enlarged lymph nodes (principal); I10 Essential (primary) hypertension; K21.9 Gastro-esophageal reflux disease without esophagitis; Z88.1 Allergy status to other antibiotic agents; Z88.8 Allergy status to other drugs, medicaments and biological substances; Z79.82 Long term (current) use of aspirin; Z90.710 Acquired absence of both cervix and uterus; Z90.89 Acquired absence of other organs
CPT/HCPCS: 99283